=== PATIENT | male | born 1965 | race Caucasian/White ===

== ENCOUNTER 2021-09-17 22:06 | Emergency (ER) | payer BC, SELFPAY ==
[2021-09-17 22:07] VITALS: BP 174/86; PULSE 61; RESP 18; TEMP 36.4; O2SAT 97; BMI 34.4
--- NOTE | 2021-09-17 22:31 | ECG_ITS ---
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 Measurements Intervals [place] Rate: 57 P: 52 SC: 164 QRS: -3 QRSD: 81 T: 42 QT: 420 QTc: 410 Interpretive Statements SINUS BRADYCARDIA No previous ECG available for comparison Electronically Signed On 09-19-2021 8:53:44 INFORMATION RESOURCE CONSULTANT by Arnie Heredia M.D. [id number]
--- NOTE | 2021-09-17 22:32 | ED_ITS ---
HPI - General Adult General: Chief complaint: General Medical Stated complaint: Blood pressure problems Time Seen by Provider: 09/17/21 22:07 History of Present Illness: HPI narrative: Patient is a 56-year-old male comes to the ED with headache and numbness tingling to bilateral upper extremities. He says over the past 4 months he has been tracking his blood pressures and knees been consistently running elevated blood pressures. He says his blood pressure usually ranges around mid 140s over 90s. Today he woke up and he had a 9 out of 10 headache with some numbness and tingling to his hands bilaterally and a little numbness and tingling to his lower lip. Patient says he took 3 aspirin before coming here to the ED. His headache currently is rated a 3 out of 10. Denies any chest pain, shortness of breath. Patient has an appointment with a putty and patch worker in [place] in 2 days. Associated symptoms: Reports headache(s); Deny chest pain, dyspnea, nausea, rash, palpitations or vomiting Review of Systems Const: Denies: fever(s), chills or fatigue Eyes: Denies: change in vision or eye discomfort ENMT: Denies: throat pain, odynophagia, nasal discharge or nasal congestion Card: Denies: chest pain, palpitations, edema, swelling of feet/ankles, dyspnea on exertion or orthopnea Resp: Denies: dyspnea, productive cough or non-productive cough GI: Denies: abdominal pain, nausea, vomiting, diarrhea, constipation or hematochezia : Denies: flank pain, difficulty urinating, dysuria or hematuria Musc: Denies: neck pain, back pain or extremity swelling Skin/Breast: Denies: rash or new lesions Neuro: Reports: headache(s), numbness in extremities (Bilateral hands) and sensory changes (Tingling/numbness to the lower lip.); Denies: weakness in extremities Physical Exam Const: COMMON NORMALS: no acute distress, patient oriented x3, healthy cristian earing and alert GENERAL APPEARANCE: cooperative and comfortable HENMT: COMMON NORMALS: normocephalic HEAD & SCALP: normocephalic MOUTH: Normal oral and palatal mucosa present THROAT: posterior oropharynx normal and uvula midline Eye: COMMON NORMALS: Equal, round and reactive pupils present and EOMs intact bilaterally PUPIL: Yes Equal, round and reactive pupils present Neck/C-Spine: COMMON NORMALS: supple GENERAL: Yes normal visual inspection Resp: COMMON NORMALS: normal respiratory effort, No retractions, No use of accessory muscles and clear to auscultation bilaterally AUSCULTATION: clear to auscultation bilaterally Cardio: COMMON NORMALS: regular rate, regular rhythm, S1 normal heart sound present, S2 normal heart sound present, No gallops present (Cardio), No clicks present (Cardio), No murmurs present (Cardio) and Peripheral pulses 2+ throughout RATE: regular rate RHYTHM: regular rhythm HEART SOUNDS: S1 normal heart sound present and S2 normal heart sound present PERIPHERAL PUL SES: Peripheral pulses 2+ throughout GI: COMMON NORMALS: Normal to inspection, nondistended, normoactive bowel sounds present, Soft to palpation, non-tender and no masses PALPATION: Yes Soft to palpation : COMMON NORMALS: Yes no CVA tenderness BLADDER/KIDNEY EXAM: Yes no CVA tenderness Back/Pelvis: COMMON NORMALS: no CVA tenderness Extremity: COMMON NORMALS: normal to inspection Neuro: COMMON NORMALS: patient oriented x3, CN's II-XII intact bilaterally, moves all extremities, no focal motor deficits and no sensory deficits noted SENSORIUM/ORIENTATION: Yes alert SENSORY EXAM: Yes extremities (intact) MOTOR EXAM: 5/5 motor strength present throughout Skin: GENERAL SKIN EXAM: dry skin Course Vital Signs: Vital signs: Vital Signs Temperature 97.6 F 09/17/21 22:07 Pulse Rate 52 L 09/17/21 23:50 Respiratory Rate 18 09/17/21 23:50 Blood Pressure 146/82 09/17/21 23:50 Pulse Oximetry 98 09/17/21 23:50 MDM - General Adult MDM Narrative: Medical decision making narrative: Patient is a 56-year-old male who comes to the ED with headache and elevated blood pressures. He is also reporting having some bilateral hand numbness/tingling. Denies any chest pain, shortness of breath. Vital stable. His highest blood pressure here in the ED was 174/86, but without any treatment it was rechecked again and it was 146/82. the patient appears in no acute distress or pain. Neuro exam was normal and no deficits noted. CT head showed no acute findings. EKG showed sinus bradycardia, 57 bpm, no ST segment elevation or depression seen no other acute findings seen. Patient's headache was rated a 3 out of 10 here in the ED and he did not want any medication here to help with headache. Patient was referred by his PCP to a putty and patch worker at [place]. Patient lives closer here to [place] and would like a referral to a local [facility] putty and patch worker. I placed an order with case management for patient to be set up with a cardi ologist here at [facility]. Patient diagnosed with a headache and hypertension and he was discharged home and told to follow-up with his PCP in 7 to 10 days reevaluation. Return to ED precautions given. Patient understood agree with plan. Imaging Data^: CT Head: Attestation: I personally reviewed and interpreted this imaging study as follows: Radiologist's impression: [address] [place] [address] CT Scan Report Signed Patient: Richardson Silva Unit #: [id number] : 1965 Age/Sex: 56 / M ADM Date: 09/17/21 Loc: ER Room/Bed: Attending Dr: Ordering Provider/Ordering MD: Vikas Motta Date of Service: 09/17/21 Procedure(s): CT head wo con* [id number] Accession Number(s): [id number] Report Number: [id number] PROCEDURE INFORMATION: Exam: CT Head Without Contrast Exam date and time: 09/17/2021 10:31 PM Age: 56 years old Clinical indication: Pain; Headache; Additional info: Headache with bilateral hand numbness TECHNIQUE: Imaging protocol: Computed tomography of the head without contrast. Sagittal and coronal reformatted images were created and reviewed. Radiation optimization: All CT scans at this facility use at least one of these dose optimization techniques: automated exposure control; mA and/or kV adjustment per patient size (includes targeted exams where dose is matched to clinical indication); or iterative reconstruction. COMPARISON: No relevant prior studies available. RADIATION DOSE METRICS: Total DLP (mGy-cm): 895.59 FINDINGS: Brain: 1Imaging Protocol: Sagittal and coronal reformatted images were created and reviewed. No acute intracranial hemorrhage. No acute infarct. No intra-axial or extra-axial masses. Ivey-white matter differentiation is preserved. No cerebral edema. No extra-axial fluid collections. No midline shift. Cerebral ventricles: No hydrocephalus. Paranasal sinuses: Visualized paranasal sinuses are clear. Mastoid air cells: Unremarkable as visualized. Orbital cavity: Globes and lenses, extraocular muscles, and optic nerves are intact bilaterally. No acute intraorbital abnormality. Vasculature: Mild atherosclerotic changes in the visualized arteries. Bones/joints: Mild left nasal septal deviation. Soft tissues: The extracranial soft tissues are unremarkable. CT/CT head wo con* [id number] IMPRESSION: 1. No acute abnormality of the brain. 2. Incidental/nonacute findings are listed in the report. Dictated By: Maricel Boone MD Signed By: Maricel Boone MD Signed Date/Time: 09/17/212308 DD/ 30 EKG Data^: EKG 1: Attestation: I personally reviewed and interpreted this EKG as follows: EKG interpretation date: 09/17/21 Interpretation: Sinus bradycardia, 57 bpm, no ST segment elevation or depression seen. No other acute findings. Computer generated interpretation: Head CT 09/17/21 22:31 IMPRESSION: 1. No acute abnormality of the brain. 2. Incidental/nonacute findings are listed in the report. Discharge Plan Discharge Patient Disposition: Home Clinical Impression: Headache Qualifiers: Headache type: unspecified Headache chronicity pattern: acute headache Intractability: not intractable Qualified Code(s): R51.9 - Headache, unspecified Hypertension Qualifiers: Hypertension type: unspecified Qualified Code(s): I10 - Essential (primary) hypertension Condition: Stable Discharge Orders: Discharge ED (Routine); Ordered 09/17/21 Ordered By: Vikas Motta Referrals: Shakeel Knight [Family Provider] - Discharge Diet: Regular Discharge Activity: Increase activity as tolerated Patient Instructions: Acute Headache (ED), Hypertension (ED) Activity Restrictions/Additional Instructions: Follow-up with medical provider as directed. Case management will be contacting you in the next several days to set up an appointment with a putty and patch worker here at [facility]. Take medications as prescribed. Return to the ER or your medical provider if condition worsens. Please read and understand discharge instructions. Thank you for choosing [facility] for your healthcare needs today. Please realize this is an emergency room and that we are providing you with a medical screening exam and this may not be complete and all inclusive of all the testing and or work up that you may need to determine your ailment or severity of your illness. It is very important that you follow up as instructed or that you return to the Emergency Department should you have concerns or if your condition changes or worsens in any way. Coding Level of Care Code ED Lead Systems Developer for Miko Fwd Exam Comprehensive
[2021-09-17 23:50] VITALS: BP 146/82; PULSE 52; RESP 18; O2SAT 98
--- NOTE | 2021-09-18 10:16 | PC.SOCIAL ---
Referral received from DR Motta for Cardiology referral and patient was set up by Ashanti at Cardiology clinic to see Dr Heredia on 09/23/2021 at 1:15pm. Notified and she wrote down appt and repeated appt back to this nurse.
--- NOTE | 2021-09-26 15:40 | DCPLANNER ---
Patient had an appointment scheduled with heart care - patient did not attend appointment.
== END 2021-09-17 23:58 | disposition home or self-care (01) ==
PROVIDERS: Emergency Provider Physician Assistant; Family Provider Family Medicine
DX: R51.9 Headache, unspecified (principal); I10 Essential (primary) hypertension
CPT/HCPCS: 70450; 93005; 99283

== ENCOUNTER 2022-03-17 09:10 | Emergency (ER) | payer OTHER, SELFPAY ==
[2022-03-17 09:24] VITALS: BP 162/95; PULSE 80; RESP 16; TEMP 36.6; O2SAT 98; BMI 32.1
--- NOTE | 2022-03-17 10:04 | CT_ITS ---
WS: [id number] CT ABDOMEN PELVIS TECHNIQUE: Noncontrast CT of the abdomen and pelvis with coronal and sagittal reformatted images. CLINICAL INFORMATION: Abdominal pain COMPARISON: None. DLP: 1583.[address] scans at [facility] use at least one of these dose optimization techniques: automated e xposure control; mA and/or kV adjustment per patient size (includes targeted exams where dose is matc hed to clinical indication); or iterative reconstruction. FINDINGS: Lung bases are well aerated. Moderate esophageal hiatal hernia. Stomach and proximal small bowel appe ar normal. No evidence of high-grade small or large bowel obstruction. Sigmoid diverticulosis. No joaquina dence of acute diverticulitis. Prior appendectomy. Noncontrast liver is normal. Small hepatic cyst in the dome the liver. Gallbladder appears normal. Mi ld fatty atrophy of the pancreas appears normal. Adrenal glands are normal. Obstructing RIGHT proximal ureteral calculus measuring 5 mm with moderate RIGHT hydronephrosis and ur eterectasis. This is in the proximal one third RIGHT ureter at the L3 superior endplate level. Distal RIGHT ureter is decompressed. No obstructing LEFT renal or ureteral calculi. Normal caliber abdominal aorta. Mild aortic calcification. Splenic granulomas. Tiny fat-containing of multiple hernia. Chronic spondylolysis L5-S1 with grade [address]/CT abdomen pelvis wo con [id number] IMPRESSION: 1. Obstructing RIGHT 5 mm calculus in the proximal one third RIGHT ureter. Mod erate RIGHT ureterectasis and pelvocaliectasis. 2. Moderate esophageal hiatal hernia. 3. Sigmoid diverticulosis. 4. Grade 1 anterolisthesis L5 on S1 with chronic spondylolysis. 5. No other acute findings. Notified Hitesh Buchanan DO at 03/17/2022 10:48 AM.
--- NOTE | 2022-03-17 10:04 | US_ITS ---
WS: [id number] ULTRASOUND ABDOMEN LIMITED CLINICAL INFORMATION: abd pain COMPARISON: None. FINDINGS: Liver Size: Normal. Craniocaudal length: 14.7 cm. Echogenicity: Normal. Surface nodularity: None. Mass (size and location): None. Bile ducts Intrahepatic ducts: Normal. Common bile duct diameter: 0.5 cm. Gallbladder Normal. Gallstones: None. Gallbladder sludge: None. Gallbladder wall thickening: None. Pericholecystic fluid: None. Sonographic Bay sign: Absent. Pancreas Normal as visualized. Right kidney: Normal. Hydronephrosis: None. Size: 11.3 cm x 6.2 cm x 5.7 cm. Abdominal aorta and IVC Visualized portions are normal. Ascites: None. US/US gall bladder [id number] IMPRESSION: Normal abdominal ultrasound
[2022-03-17 10:16] LABS: Basophils % 0.1 %; Eosinophils % 0.1 %; Hematocrit 41.8 % (42.0-52.0); Hemoglobin 14.9 g/dL (11.7-16.6); Lymphocytes # 1.3 10^3/uL (0.8-4.8); Lymphocytes % 9.1 %; Mean Corpuscular HGB Conc 35.6 g/dL (30.0-36.0); Mean Corpuscular Hemoglobin 30.9 pg (28.0-34.0); Mean Corpuscular Volume 86.7 fl (80-94); Mean Platelet Volume 12.3 fL (7.4-10.4); Monocytes % 6.7 %; Neutrophils # 12.19 10^3/uL (1.8-7.7); Neutrophils % 83.6 %; Nucleated Red Blood Cells % 0 %; Platelet Count 222 10^3/cmm (130-400); Red Blood Count 4.82 10^6/uL (4.1-5.3); Red Cell Distribution Width 12.2 % (12.1-15.1); White Blood Count 14.6 10^3/uL (4.0-10.0)
--- NOTE | 2022-03-17 10:29 | PC.PHAR ---
pt states he takes care of his own medications-pt states he thinks he took amoxil -3 caps on thu and one cap on thursday-pt states he thinks it was amoxil he took from an old rx- [facility] states they filled amoxil 500mg (yellow cap) in 2017 and amoxil 875mg tab on 03/22/2020 pt states it was a pink and black capsule-notes are made in the pharmacy comments
--- NOTE | 2022-03-17 10:45 | W.ED.ABDPA2 ---
HPI - Abdominal Pain General: Chief Complaint: Abdominal Pain Stated Complaint: abdominal pain/bloating Time Seen by Provider: 03/17/22 10:04 Source: patient Mode of arrival: ambulatory Limitations: no limitations History of Present Illness: 56-year-old male presents emergency room complaining of right flank pain. Said pain the last couple of days had some bloating as well. He was seen by his primary care doctor they are concerned about gallstones and referred him to the emergency room. He has not had any hematuria denies fever sweats or chills. No chest pain or shortness of breath MD elicited complaint: abdominal pain Pertinent past history: other (precancerous polyps) Onset (ago): day(s) Pain Consistency: constant Location: R flank Severity: severe Quality: stabbing Radiation: R flank Migration to: other (Right groin) Exacerbating factors: nothing Relieving factors: nothing Associated Symptoms: Reports anorexia, GI cramping, nausea, poor appetite and vomiting; Denies belching, bloating, change in bowel habits, change in stool character, chills, coffee ground emesis, constipation, diarrhea, dyspepsia, dysuria, excessive flatus, fever(s), heartburn, hematochezia, hematuria, hematemesis, fecal incontinence, loose stools, melena and syncope Review of Systems Const: Denies: fever(s), chills, fatigue or malaise ENMT: Denies: throat pain, ear or mastoid pain, nasal discharge or nasal congestion Card: Denies: syncope Resp: Denies: dyspnea, productive cough or non-productive cough GI: Reports: abdominal pain, nausea, vomiting and GI cramping; Denies: hematemesis, coffee ground emesis, heartburn, diarrhea, constipation, bloating, belching, excessive flatus, fecal incontinence, change in bowel habits, change in stool character, hematochezia or melena : Reports: flank pain and difficulty urinating; Denies: dysuria, urinary frequency, urinary urgency or hematuria Skin/Breast: Denies: rash or pruritus PFS ED PFSH: Medical History (Updated 03/17/22 @ 20:23 by Hitesh Buchanan DO) Hypertension Social History Smoking and tobacco status: never smoked Alcohol intake: never Physical Exam Const: COMMON NORMALS: no acute distress GENERAL APPEARANCE: cooperative and comfortable ORIENTATION/CONSCIOUSNESS: Yes awake, Yes oriented to person, Yes oriented to place and Yes oriented to time HENMT: COMMON NORMALS: normocephalic, atraumatic and hearing grossly normal bilaterally HEAD & SCALP: normocephalic and atraumatic Neck/C-Spine: COMMON NORMALS: no JVD Resp: COMMON NORMALS: normal respiratory effort, No retractions, No use of accessory muscles and clear to auscultation bilaterally AUSCULTATION: clear to auscultation bilaterally Cardio: COMMON NORMALS: no JVD, regular rate, regular rhythm and No murmurs present (Cardio) RATE: regular rate RHYTHM: regular rhythm GI: COMMON NORMALS: Soft to palpation and No hepatosplenomegaly present AUSCULTATION: Yes normoactive bowel sounds PALPATION: Yes Soft to palpation, No Tenderness to palpation present (GI), No Guarding due to palpation present (GI) and Yes No hepatosplenomegaly present Extremity: COMMON NORMALS: normal to inspection, capillary refill normal, no clubbing, cyanosis or edema, no calf tenderness and no pedal edema Neuro: SENSORIUM/ORIENTATION: Yes oriented to person, Yes oriented to place and Yes oriented to time Skin: COMMON NORMALS: no rashes or lesions noted GENERAL SKIN EXAM: no rashes or lesions noted Course Vital Signs: Vital signs: Vital Signs Temperature 97.9 F 03/17/22 09:24 Pulse Rate 80 03/17/22 09:24 Respiratory Rate 16 03/17/22 11:07 Blood Pressure 162/95 03/17/22 09:24 Pulse Oximetry 100 03/17/22 11:07 MDM - Abdominal Pain Medical Decision Making Obstructing right renal stone 5 mm liver functions are normal. We will go and discharge the patient home Flomax pain control nausea meds follow-up with Bernal strain urine return if has problems. Gallbladder ultrasound unremarkable. Medical Records I reviewed the patient's medical records. Lab Data I reviewed the patient's lab results. : 03/17/22 10:05 03/17/22 10:56 Labs/Radiology: Radiology Impressions Abdomen/Pelvis CT 03/17/22 10:04 IMPRESSION: 1. Obstructing RIGHT 5 mm calculus in the proximal one third RIGHT ureter. Moderate RIGHT ureterectasis and pelvocaliectasis. 2. Moderate esophageal hiatal hernia. 3. Sigmoid diverticulosis. 4. Grade 1 anterolisthesis L5 on S1 with chronic spondylolysis. 5. No other acute findings. Notified Hitesh Buchanan DO at 03/17/2022 10:48 AM. Gallbladder Ultrasound 03/17/22 10:04 IMPRESSION: Normal abdominal ultrasound Laboratory Results WBC 14.6 10^3/uL (4.0-10.0) H 03/17/22 10:05 RBC 4.82 10^6/uL (4.1-5.3) 03/17/22 10:05 Hgb 14.9 g/dL (11.7-16.6) 03/17/22 10:05 Hct 41.8 % (42.0-52.0) L 03/17/22 10:05 MCV 86.7 fl (80-94) 03/17/22 10:05 MCH 30.9 pg (28.0-34.0) 03/17/22 10:05 MCHC 35.6 g/dL (30.0-36.0) 03/17/22 10:05 RDW 12.2 % (12.1-15.1) 03/17/22 10:05 Plt Count 222 10^3/cmm (130-400) 03/17/22 10:05 MPV 12.3 fL (7.4-10.4) H 03/17/22 10:05 Neut % (Auto) 83.6 % 03/17/22 10:05 Lymph % (Auto) 9.1 % 03/17/22 10:05 [place] % (Auto) 6.7 % 03/17/22 10:05 Eos % (Auto) 0.1 % 03/17/22 10:05 Baso % (Auto) 0.1 % 03/17/22 10:05 Neut # (Auto) 12.19 10^3/uL (1.8-7.7) H 03/17/22 10:05 Lymph # (Auto) 1.3 10^3/uL (0.8-4.8) 03/17/22 10:05 [place] # (Auto) 1.0 10^3/uL (0.2-0.9) H 03/17/22 10:05 Eos # (Auto) 0.0 10^3/uL (0.0-0.8) 03/17/22 10:05 Baso # (Auto) 0.0 10^3/uL (0.0-0.1) 03/17/22 10:05 Nucleated RBC % (auto) 0 % 03/17/22 10:05 Nucleated RBCs # 0.0 /100WBC 03/17/22 10:05 Sodium 135 mmol/L (136-145) L 03/17/22 10:56 Potassium 4.1 mmol/L (3.5-5.1) 03/17/22 10:56 Chloride 98 mmol/L (98-107) 03/17/22 10:56 Carbon Dioxide 23 mmol/L (22-29) 03/17/22 10:56 Anion Gap 18.1 (5-19) 03/17/22 10:56 BUN 17 mg/dL (6-20) 03/17/22 10:56 Creatinine 1.7 mg/dL (0.7-1.2) H 03/17/22 10:56 GFR Calculation 42.2 mL/min (90-130) L 03/17/22 10:56 Glucose 105 mg/dL (65-115) 03/17/22 10:56 Calculated Osmolality 282 mOsm/kg (285-295) L 03/17/22 10:56 Calcium 9.1 mg/dL (8.5-10.5) 03/17/22 10:56 Total Bilirubin 0.5 mg/dL (0.15-1.2) 03/17/22 10:56 AST 15 U/L (0-40) 03/17/22 10:56 ALT 14 U/L (0-41) 03/17/22 10:56 Alkaline Phosphatase 114 IU/L (40-130) 03/17/22 10:56 Total Protein 7.5 g/dL (6.6-8.7) 03/17/22 10:56 Albumin 4.3 g/dL (3.5-5.2) 03/17/22 10:56 Globulin 3.2 g/dL (1.3-4.6) 03/17/22 10:56 Lipase 32 U/L (13-60) 03/17/22 10:56 Urine Color Dark yellow (Yellow) 03/17/22 10:45 Urine Appearance Clear (CLEAR) 03/17/22 10:45 Urine pH 5 (5-7) 03/17/22 10:45 Ur Specific [place] 1.020 (1.005-1.030) 03/17/22 10:45 Urine Protein 1+ (Negative) H 03/17/22 10:45 Urine Glucose (UA) Norm (Normal) 03/17/22 10:45 Urine Ketones 1+ (Negative) H 03/17/22 10:45 Urine Blood 2+ (Negative) H 03/17/22 10:45 Urine Nitrate Negative (Negative) 03/17/22 10:45 Urine Bilirubin Neg (Negative) 03/17/22 10:45 Urine Urobilinogen 1 mg/dL (Negative) H 03/17/22 10:45 Ur Leukocyte Esterase Negative (Negative) 03/17/22 10:45 Urine RBC 0-4 /hpf (0-2) H 03/17/22 10:45 Urine WBC 0-4 /hpf (0-5) H 03/17/22 10:45 Ur Squamous Epith Cells None /hpf (0-5) 03/17/22 10:45 Amorphous Sediment Not Reportable 03/17/22 10:45 Urine Bacteria None /hpf (NONE) 03/17/22 10:45 Urine Mucus 1+ /hpf 03/17/22 10:45 Discharge Plan Discharge Patient Disposition: Home Clinical Impression: Right nephrolithiasis Condition: Stable Prescriptions: New hydrocodone-acetaminophen 5-325 mg tablet 1 tab PO Q6H PRN (Reason: pain) Qty: 20 0RF ondansetron HCl 4 mg tablet 4 mg PO Q6H PRN (Reason: nausea and vomiting) Qty: 20 0RF tamsulosin 0.4 mg capsule 0.4 mg PO DAILY Qty: 14 0RF No Action atorvastatin 20 mg tablet 20 mg PO DAILY@19 0RF amlodipine 5 mg tablet 5 mg PO DAILY@19 0RF Tylenol Ex Str Rapid Release 500 mg Tablet 1,000 mg PO Q4H PRN (Reason: Pain) 0RF Amoxil 250 mg Capsule 250 - 500 mg PO .ON SAT AND SUN 0RF Discharge Orders: Discharge ED (Routine); Ordered 03/17/22 Ordered By: Hitesh Buchanan Referrals: Catrachita Lopez MD [Primary Care Provider] - Discharge Diet: Usual diet Discharge Activity: Resume usual activity Patient Instructions: Opioid Safety Activity Restrictions/Additional Instructions: Strain urine. Pain medications as needed. Follow-up with Dr. Bernal in the next few days the nurse case management will make arrangements for that follow-up. Return if pain is uncontrolled. Stand Alone Forms: Work/School Release Coding Level of Care Code ED Meat Inspector for Miko Peck
[2022-03-17 11:07] VITALS: RESP 16; O2SAT 100
[2022-03-17] MEDS: morphine 4 mg/mL SDV 1 mL IVP (11:07)
[2022-03-17] MEDS: ondansetron 2 mg/ML SDV 2 mL 4 MG IVP (11:08)
[2022-03-17 11:24] LABS: Alanine Aminotransferase 14 U/L (0-41); Albumin Level 4.3 g/dL (3.5-5.2); Alkaline Phosphatase 114 IU/L (40-130); Anion Gap 18.1 (5-19); Aspartate Amino Transferase 15 U/L (0-40); Blood Urea Nitrogen 17 mg/dL (6-20); Calcium 9.1 mg/dL (8.5-10.5); Carbon Dioxide 23 mmol/L (22-29); Chloride 98 mmol/L (98-107); Globulin 3.2 g/dL (1.3-4.6); Glomerular Filtration Rate 42.2 mL/min (90-130); Glucose 105 mg/dL (65-115); Lipase 32 U/L (13-60); Osmolality Calculated 282 mOsm/kg (285-295); Potassium 4.1 mmol/L (3.5-5.1); Sodium 135 mmol/L (136-145); Total Bilirubin 0.5 mg/dL (0.15-1.2); Total Protein 7.5 g/dL (6.6-8.7)
[2022-03-17 11:46] LABS: Add Urine Microscopic? YES; Bilirubin Urine Neg (Negative); Blood Urine 2+ (Negative); Glucose Urine UA Norm (Normal); Ketones Urine 1+ (Negative); Leukocyte Esterase Urine Negative (Negative); Nitrate Urine Negative (Negative); Protein Urine 1+ (Negative); RBC Urine 0-4 /hpf (0-2); Urine Appearance Clear (CLEAR); Urine Color Dark Yellow (Yellow); Urobilinogen Urine 1 mg/dL (Negative); WBC Urine 0-4 /hpf (0-5); pH Urine 5 (5-7)
[2022-03-17 11:47] LABS: Add Urine Culture? No; Mucus Urine 1+ /hpf
== END 2022-03-17 12:16 | disposition home or self-care (01) ==
PROVIDERS: Physician Assistant; Emergency Provider Family Medicine; PCP Family Medicine
DX: N20.0 Calculus of kidney (principal); I10 Essential (primary) hypertension
CPT/HCPCS: 74176; 76705; 80053; 81001; 83690; 85025; 96374; 96375; 99284; J2270; J2405

== ENCOUNTER 2025-05-19 11:21 | Outpatient (CLI) | payer BC, SELFPAY ==
--- NOTE | 2025-05-19 12:15 | US_ITS ---
WS: [id number] RIGHT UPPER QUADRANT ULTRASOUND HISTORY: ruq abdominal pain COMPARISON: 03/17/2022 Liver: 14.6 cm in length. Normal size. Poorly visualized liver is entirety due to body habitus and hepatic steatosis. The deep liver has not been imaged. The remaining liver is unremarkable except for steatosis. On some of the images the surface of the liver is fatty slightly nodular. Subcapsular cyst measures 1.2 x 1.1 x 0.6 cm. Portal Vein: Normal hepatopetal flow with monophasic waveform. Gallbladder: Normally distended gallbladder with no stones or wall thickening. CBD: 0.4 cm Pancreas: Obscured. Right kidney: 9.8 cm in length. Normal size and echogenicity. No hydronephrosis or mass. Aorta and IVC: Limited. No ascites. US/US gall bladder [id number] IMPRESSION: 1. Technically difficult RIGHT upper quadrant ultrasound due to body habitus. 2. Negative gallbladder. 3. Hepatic steatosis with areas of fatty sparing. 4. Very slight nodularity of the liver surface. This can be seen with early ch anges of cirrhosis. 5. Subcapsular hepatic cyst.
== END 2025-05-19 11:22 | disposition home or self-care (01) ==
PROVIDERS: PCP Nurse Practitioner Family; Visit Provider Emergency Medicine
DX: R10.11 Right upper quadrant pain (principal); K76.0 Fatty (change of) liver, not elsewhere classified; K76.89 Other specified diseases of liver
CPT/HCPCS: 76705

== ENCOUNTER → 2025-06-08 09:46 | Outpatient (BNVA) | payer BC, SELFPAY | PROVIDERS: PCP Family Medicine; Visit Provider Family Medicine | DX: I10 Essential (primary) hypertension (principal); K76.0 Fatty (change of) liver, not elsewhere classified; E78.00 Pure hypercholesterolemia, unspecified; R10.11 Right upper quadrant pain; K44.9 Diaphragmatic hernia without obstruction or gangrene; K21.9 Gastro-esophageal reflux disease without esophagitis | CPT/HCPCS: 80053; 82306; 82390; 83036; 83540; 84439; 84443; 85025; 86038; 86705; 86706; 86709; 86803; 87340 ==

== ENCOUNTER 2025-06-19 09:36 | Outpatient (CLI) | payer BC, SELFPAY ==
--- NOTE | 2025-06-19 10:15 | CT_ITS ---
WS: [id number] LDCT LUNG CANCER SCREENING HISTORY: quit smoking 2014; 34 pk yr TECHNIQUE: Axial imaging performed from the apices to 1 cm below the costophrenic angles. Coronal and sagittal reformats are submitted with axial MIP series. All CT scans at [facility] use at least one of these dose optimization techniques: automated exposure control; mA and/or kV adjustment per patient size (includes targeted exams where dose is matched to clinical indication); or iterative reconstruction. DLP: 97.81 mGy.cm DIvol: Mean CTDIvol: 2.00 (mGy) COMPARISON: None available. Diagnostic quality: Satisfactory Lungs: Well-aerated lungs. Benign granuloma at the lingula. No mass or nodule. No endobronchial lesion. Heart: Normal size heart with no pericardial effusion.. Other findings: Minimal atherosclerosis aorta. Normal size aorta and pulmonary artery. No adenopathy. Moderate size hiatal hernia. No adrenal mass. No destructive bone lesions. Benign hemangioma T5. CT/CT lung screening [id number] IMPRESSION: LUNG-RADS: 2-Benign Appearance or Behavior FOLLOW UP: 12 Month: Continue annual screening with LDCT OTHER FINDINGS (S MODIFIER): None.
== END 2025-06-19 09:37 | disposition home or self-care (01) ==
PROVIDERS: PCP Family Medicine; Visit Provider Family Medicine
DX: Z12.2 Encounter for screening for malignant neoplasm of respiratory organs (principal); F17.211 Nicotine dependence, cigarettes, in remission; K44.9 Diaphragmatic hernia without obstruction or gangrene; D18.09 Hemangioma of other sites; J84.10 Pulmonary fibrosis, unspecified
CPT/HCPCS: 71271

== ENCOUNTER → 2025-07-11 09:50 | Outpatient (BNVA) | payer BC, SELFPAY | PROVIDERS: PCP Family Medicine; Visit Provider Family Medicine | DX: E11.9 Type 2 diabetes mellitus without complications (principal); I10 Essential (primary) hypertension; E78.00 Pure hypercholesterolemia, unspecified; K76.89 Other specified diseases of liver; K76.0 Fatty (change of) liver, not elsewhere classified | CPT/HCPCS: 82043 ==